=== PATIENT | female | born 1945 | race Caucasian/White ===

== ENCOUNTER 2019-05-13 10:24 | Day surgery (SDC) | payer MEDICARE, BC ==
[2019-05-13] VITALS (10 sets, daily range): BP systolic 102–157; BP diastolic 55–88
[~2019-05-13] VITALS: Ht 160 cm; Wt 55.9 kg
[2019-05-13] MEDS ORDERED: AMLO1TAB42 PO (11:08)
[2019-05-13] MEDS ORDERED: LORA10CA PO (11:09)
[2019-05-13] MEDS ORDERED: CHOL400T57 PO (11:09)
[2019-05-13] MEDS ORDERED: UBID200C18 PO (11:11)
[2019-05-13] MEDS ORDERED: IRON PO (11:12)
[2019-05-13] MEDS ORDERED: LANS15TA5 PO (11:13)
[2019-05-13] MEDS ORDERED: MELO-102 PO (11:13)
[2019-05-13] MEDS ORDERED: ASPI-1264 PO (11:14)
[2019-05-13] MEDS ORDERED: EVOL140S2 SQ (11:15)
[2019-05-13 11:16] LABS: BASOPHILS # (AUTO) 0.1 X10'3 (0-0.2); EOSINOPHILS # (AUTO) 0.2 X10'3 (0-0.9); HEMATOCRIT 45.9 % (35.0-45.0); HEMOGLOBIN 15.5 g/dl (12.0-16.0); LYMPHOCYTES # (AUTO) 1.2 X10'3 (1.1-4.8); MEAN CORPUSCULAR HEMOGLOBIN 30.7 PG (27.0-31.0); MEAN CORPUSCULAR HGB CONC 33.8 g/dL (33.0-36.5); MEAN CORPUSCULAR VOLUME 90.6 FL (78-98); MEAN PLATELET VOLUME 8.9 FL (7.4-10.4); MONOCYTES # (AUTO) 0.5 X10'3 (0-0.9); MONOCYTES % (AUTO) 8.1 % (2-12); NEUTROPHILS # (AUTO) 3.9 X10'3 (1.8-7.7); NEUTROPHILS % (AUTO) 66.9 % (42-75); PLATELET COUNT 311 X10'3 (140-440); RED BLOOD COUNT 5.07 X10'6 (4.20-5.60); RED CELL DISTRIBUTION WIDTH 12.9 % (11.5-14.5); WHITE BLOOD COUNT 5.8 X10'3 (4.5-11.0)
[2019-05-13 11:24] LABS: ALBUMIN 4.9 G/DL (3.4-5.0); ANION GAP 12 (8-16); BLOOD UREA NITROGEN 30 MG/DL (7-18); BUN/CREATININE RATIO 20.5 (6.6-38.0); CALCIUM 10.3 MG/DL (8.5-10.1); CHLORIDE 104 MMOL/L (99-107); CREATININE 1.46 MG/DL (0.40-0.90); GLUCOSE 96 MG/DL (70-104); MAGNESIUM 2.1 MG/DL (1.5-2.4); POTASSIUM 4.2 MMOL/L (3.5-5.1); SODIUM 142 MMOL/L (135-145); TOTAL CARBON DIOXIDE 26.2 MMOL/L (24-32); eGFR 35 ML/MIN
[2019-05-13] MEDS ORDERED: normal saline 1000ml 1,000 ML IV SCH (11:25)
[2019-05-13] MEDS ORDERED: clindamycin phosphate 150mg/ml inj. ONE (11:56)
[2019-05-13] MEDS ORDERED: fentaNYL/PF 50MCG/1 ML 2ML syringe ONE ×2 (11:56→12:57)
[2019-05-13] MEDS ORDERED: clindamycin 600mg/D5W 50ml 50 ML IV ONE (11:56)
[2019-05-13] MEDS ORDERED: vancomycin 1,000mg inj ONE (11:56)
[2019-05-13] MEDS ORDERED: midazolam 2 mg/2 ml injection ONE ×4 (11:56→13:15)
[2019-05-13] MEDS ORDERED: LIDOcaine 1% W/epiNEPHrine 1:100,000 20ml vial ONE (11:56)
[2019-05-13] MEDS ORDERED: iohexol 350MG/ML 100ml bottle IV ONE (11:57)
[2019-05-13] MEDS ORDERED: heparin 1,000unit/ml 10ml vial 10 ML ONE (11:57)
== END 2019-05-13 17:00 | disposition home or self-care (01) ==
LOC: SSTAY O 10:24
PROVIDERS: ATTEND Internal Medicine Cardiovascular Disease
DX: I49.5 Sick sinus syndrome (principal); I65.21 Occlusion and stenosis of right carotid artery; I70.291 Other atherosclerosis of native arteries of extremities, right leg; I48.0 Paroxysmal atrial fibrillation; I10 Essential (primary) hypertension; E78.00 Pure hypercholesterolemia, unspecified; Z88.0 Allergy status to penicillin; Z88.8 Allergy status to other drugs, medicaments and biological substances; Z90.710 Acquired absence of both cervix and uterus; Z98.890 Other specified postprocedural states; Z90.721 Acquired absence of ovaries, unilateral
CPT/HCPCS: 33208; 36225; 36415; 71045; 75710; 80048; 83735; 85025; 85610; 93005; 99152; 99153; C1769; C1785; C1894; C1898; J1644; J2250; J3010; J3370; J3490; Q9967; 36200; A4565; A4620; C1760

== ENCOUNTER 2019-05-14 10:10 | Emergency (ER) | payer MEDICARE, BC ==
[~2019-05-14] VITALS: Ht 162.6 cm; Wt 56.4 kg
[~2019-05-14 10:10] MED LIST: AMLO1TAB42 PO; ASPI-1264 PO; CHOL400T57 PO; EVOL140S2 SQ; IRON PO; LANS15TA5 PO; LORA10CA PO; MELO-102 PO; UBID200C18 PO
[2019-05-14 11:05] LABS: BASOPHILS % (AUTO) 0.4 % (0-1); EOSINOPHILS # (AUTO) 0.1 X10'3 (0-0.9); EOSINOPHILS % (AUTO) 1.7 % (0-6); HEMATOCRIT 42.1 % (35.0-45.0); HEMOGLOBIN 13.9 g/dl (12.0-16.0); LYMPHOCYTES % (AUTO) 12.3 % (21-51); MEAN CORPUSCULAR HGB CONC 33.1 g/dL (33.0-36.5); MEAN CORPUSCULAR VOLUME 90.6 FL (78-98); MEAN PLATELET VOLUME 8.8 FL (7.4-10.4); MONOCYTES # (AUTO) 0.7 X10'3 (0-0.9); NEUTROPHILS # (AUTO) 6.4 X10'3 (1.8-7.7); NEUTROPHILS % (AUTO) 77.6 % (42-75); PLATELET COUNT 262 X10'3 (140-440); RED BLOOD COUNT 4.65 X10'6 (4.20-5.60); RED CELL DISTRIBUTION WIDTH 12.5 % (11.5-14.5); WHITE BLOOD COUNT 8.3 X10'3 (4.5-11.0)
[2019-05-14 11:15] LABS: ALANINE AMINOTRANSFERASE 22 U/L (12-78); ALBUMIN 4.1 G/DL (3.4-5.0); ALBUMIN/GLOBULIN RATIO 1.2 (1.1-1.5); ALKALINE PHOSPHATASE 86 IU/L (46-116); ANION GAP 8 (8-16); ASPARTATE AMINO TRANSFERASE 24 U/L (10-37); BILIRUBIN,TOTAL 0.4 MG/DL (0.1-1.0); BLOOD UREA NITROGEN 26 MG/DL (7-18); BUN/CREATININE RATIO 19.3 (6.6-38.0); CALCIUM 9.5 MG/DL (8.5-10.1); CHLORIDE 105 MMOL/L (99-107); CREATININE 1.35 MG/DL (0.40-0.90); GLUCOSE 90 MG/DL (70-104); POTASSIUM 4.4 MMOL/L (3.5-5.1); SODIUM 140 MMOL/L (135-145); TOTAL PROTEIN 7.4 G/DL (6.4-8.2); eGFR 38 ML/MIN
[2019-05-14 11:17] LABS: MAGNESIUM 1.9 MG/DL (1.5-2.4)
--- NOTE | 2019-05-14 11:36 | NUR ---
VASCULAR STUDY DONE
[2019-05-14 13:20] VITALS: BP 166/66
--- NOTE | 2019-05-14 13:21 | NUR ---
RELIEVING RN FOR LUNCH, PT IS RESTING QUIETLY ON BED, FAMILY AT BEDSIDE, TROPONIN #2 DRAWN, WAITING FOR RESULTS, PT C/O "UNCOMFORTABLE" FEELING UPPER LEFT CHEST
== END 2019-05-14 14:47 | disposition home or self-care (01) ==
LOC: ER 10:11
DX: T82.897A Other specified complication of cardiac prosthetic devices, implants and grafts, initial encounter (principal); M25.511 Pain in right shoulder; M54.2 Cervicalgia; I25.10 Atherosclerotic heart disease of native coronary artery without angina pectoris; Z98.61 Coronary angioplasty status; Z95.0 Presence of cardiac pacemaker; Z88.0 Allergy status to penicillin; Z88.8 Allergy status to other drugs, medicaments and biological substances; Z79.82 Long term (current) use of aspirin; Z79.899 Other long term (current) drug therapy; Y69 Unspecified misadventure during surgical and medical care; Y92.89 Other specified places as the place of occurrence of the external cause
CPT/HCPCS: 36415; 71045; 80053; 83735; 84484; 85025; 93005; 93880; 99285

== ENCOUNTER 2020-10-26 09:47 | Day surgery (SDC) | payer MEDICARE, BC ==
[~2020-10-26] VITALS: Ht 161.3 cm; Wt 54.2 kg
[2020-10-26] VITALS (12 sets, daily range): BP systolic 135–172; BP diastolic 52–82
[2020-10-26] MEDS ORDERED: diphenhydrAMINE 25mg capsule PO PRN (10:20)
[2020-10-26] MEDS ORDERED: MULT-1085 PO (11:09)
[2020-10-26] MEDS ORDERED: APIX2.5T PO (11:09)
[2020-10-26] MEDS ORDERED: LANS30CA37 PO (11:09)
[2020-10-26] MEDS ORDERED: ALBU8HFA PO (11:09)
[2020-10-26 11:13] LABS: BASOPHILS # (AUTO) 0.1 X10'3 (0-0.2); BASOPHILS % (AUTO) 1.2 % (0-1); EOSINOPHILS # (AUTO) 0.6 X10'3 (0-0.9); EOSINOPHILS % (AUTO) 8.4 % (0-6); HEMATOCRIT 37.2 % (35.0-45.0); HEMOGLOBIN 12.5 g/dl (12.0-16.0); LYMPHOCYTES # (AUTO) 1.2 X10'3 (1.1-4.8); LYMPHOCYTES % (AUTO) 18.1 % (21-51); MEAN CORPUSCULAR HEMOGLOBIN 31.1 PG (27.0-31.0); MEAN CORPUSCULAR HGB CONC 33.6 g/dL (33.0-36.5); MEAN CORPUSCULAR VOLUME 92.6 FL (78-98); MEAN PLATELET VOLUME 8.7 FL (7.4-10.4); MONOCYTES # (AUTO) 0.6 X10'3 (0-0.9); MONOCYTES % (AUTO) 8.4 % (2-12); NEUTROPHILS # (AUTO) 4.2 X10'3 (1.8-7.7); NEUTROPHILS % (AUTO) 63.9 % (42-75); PLATELET COUNT 267 X10'3 (140-440); RED BLOOD COUNT 4.02 X10'6 (4.20-5.60); RED CELL DISTRIBUTION WIDTH 12.7 % (11.5-14.5); WHITE BLOOD COUNT 6.5 X10'3 (4.5-11.0)
[2020-10-26 11:15] LABS: ANION GAP 9 (8-16); BLOOD UREA NITROGEN 35 MG/DL (7-18); BUN/CREATININE RATIO 22.9 (6.6-38.0); CALCIUM 9.1 MG/DL (8.5-10.1); CHLORIDE 106 MMOL/L (99-107); CREATININE 1.53 MG/DL (0.40-0.90); GLUCOSE 89 MG/DL (70-104); POTASSIUM 4.5 MMOL/L (3.5-5.1); SODIUM 142 MMOL/L (135-145); eGFR 33 ML/MIN
[2020-10-26] MEDS: normal saline 1,000 ML IV SCH ×2 (11:26→14:00)
[2020-10-26] MEDS ORDERED: iohexol 350MG/ML 100ml bottle IV ONE ×2 (11:27→12:37)
[2020-10-26] MEDS ORDERED: iohexol 350 MG/ML 50ML vial IV ONE (11:27)
[2020-10-26] MEDS ORDERED: verapamil 2.5 mg/ml inj IV ONE (11:27)
[2020-10-26] MEDS ORDERED: fentaNYL/PF 50MCG/1 ML 2ML syringe ONE (11:27)
[2020-10-26] MEDS ORDERED: heparin 1,000unit/ml 10ml vial 10 ML ONE (11:27)
[2020-10-26] MEDS ORDERED: midazolam 1 mg/ML 2ml injection ONE ×2 (11:27→12:13)
[2020-10-26] MEDS ORDERED: LIDOcaine 1% (10mg/ml)w/preservative injection 20ml MDV ONE (11:27)
[2020-10-26] MEDS ORDERED: nitroGLYCERIN-Tridil 50MG/D5W 250 ML IV ONE (11:28)
[2020-10-26] MEDS ORDERED: clopidogrel 300mg tablet ONE (13:33)
[2020-10-26] MEDS ORDERED: ondansetron/PF 4mg/2ml inj IV PRN (14:05)
[2020-10-26] MEDS ORDERED: HYDROcodone/acetaminophen 5mg/325mg tablet PO PRN (14:05)
[2020-10-26] MEDS ORDERED: acetaminophen 325mg tablet PO PRN (14:05)
[2020-10-26] MEDS ORDERED: HYDROcodone/acetaminophen 10/325mg tab PO PRN (14:05)
[2020-10-26] MEDS ORDERED: proCHLORperazine 10 MG/2 ml inj IV PRN (14:05)
[2020-10-26] MEDS ORDERED: normal saline 1000ml 1,000 ML IV SCH (14:05)
--- NOTE | 2020-10-26 18:38 | NUR ---
Pt S/P femoral heart cath-has been on bedpan 5X in 1 hour and saturated agustina alfonso X4-pt states she has extreme urge to urinate and is very uncomfortable. Addendum: 10/26/20 at 1841 by Dinah Diaz RN Amended: Links added.
== END 2020-10-26 19:31 | disposition home or self-care (01) ==
LOC: SSTAY O 09:47
PROVIDERS: ATTEND Internal Medicine Cardiovascular Disease
DX: R94.39 Abnormal result of other cardiovascular function study (principal); R07.9 Chest pain, unspecified; I25.118 Atherosclerotic heart disease of native coronary artery with other forms of angina pectoris; I70.218 Atherosclerosis of native arteries of extremities with intermittent claudication, other extremity; E78.00 Pure hypercholesterolemia, unspecified; I13.0 Hypertensive heart and chronic kidney disease with heart failure and stage 1 through stage 4 chronic kidney disease, or unspecified chronic kidney disease; N18.30 Chronic kidney disease, stage 3 unspecified; I48.0 Paroxysmal atrial fibrillation; Z95.0 Presence of cardiac pacemaker; Z79.899 Other long term (current) drug therapy; Z98.890 Other specified postprocedural states; Z90.710 Acquired absence of both cervix and uterus; Z90.721 Acquired absence of ovaries, unilateral; Z98.62 Peripheral vascular angioplasty status; Z88.0 Allergy status to penicillin; Z88.8 Allergy status to other drugs, medicaments and biological substances; Z82.49 Family history of ischemic heart disease and other diseases of the circulatory system
CPT/HCPCS: 36415; 80048; 83735; 85025; 85610; 92978; 93005; 93458; 93571; 99152; 99153; C1725; C1751; C1753; C1760; C1769; C1874; C1894; C9600; J1644; J2001; J2250; J3010; J7030; Q0163; Q9967; A4620; A6258; J3490

== ENCOUNTER → 2020-12-21 | Day surgery (SDC) | payer MEDICARE, BC ==
[2020-12-21] VITALS (9 sets, daily range): BP systolic 128–179; BP diastolic 49–97
[~2020-12-21] VITALS: Ht 161.3 cm; Wt 55.8 kg
[~2020-12-21] MED LIST changes: +ALBU8HFA PO; +APIX2.5T PO; -ASPI-1264 PO; +IMODIUM; -IRON PO; -LANS15TA5 PO; +LANS30CA37 PO; +LIDOcaine 1% (10mg/ml)w/preservative injection 20ml MDV ONE; -MELO-102 PO; +MULT-1085 PO; -UBID200C18 PO; +acetylcysteine 200 MG/ml 4ml vial PO PRN; +diphenhydrAMINE 25mg capsule PO PRN; +fentaNYL/PF 50MCG/1 ML 2ML syringe ONE; +heparin 1,000unit/ml 10ml vial 10 ML ONE; +iohexol 350 MG/ML 50ML vial IV ONE; +iohexol 350MG/ML 100ml bottle IV ONE; +midazolam 1 mg/ML 2ml injection ONE; +sodium bicarbonate (8.4%) inj. 150 ML in dextrose 5%-water 1,000 ML IV ONE
[2020-12-21 10:23] LABS: BASOPHILS # (AUTO) 0.1 X10'3 (0-0.2); BASOPHILS % (AUTO) 1.2 % (0-1); EOSINOPHILS # (AUTO) 0.5 X10'3 (0-0.9); EOSINOPHILS % (AUTO) 8.7 % (0-6); HEMATOCRIT 38.2 % (35.0-45.0); HEMOGLOBIN 12.7 g/dl (12.0-16.0); LYMPHOCYTES % (AUTO) 17.9 % (21-51); MEAN CORPUSCULAR HGB CONC 33.3 g/dL (33.0-36.5); MEAN CORPUSCULAR VOLUME 93.2 FL (78-98); MEAN PLATELET VOLUME 8.8 FL (7.4-10.4); MONOCYTES # (AUTO) 0.5 X10'3 (0-0.9); MONOCYTES % (AUTO) 8.1 % (2-12); NEUTROPHILS # (AUTO) 3.7 X10'3 (1.8-7.7); NEUTROPHILS % (AUTO) 64.1 % (42-75); PLATELET COUNT 283 X10'3 (140-440); RED CELL DISTRIBUTION WIDTH 12.9 % (11.5-14.5); WHITE BLOOD COUNT 5.7 X10'3 (4.5-11.0)
[2020-12-21 10:26] LABS: ANION GAP 10 (8-16); BLOOD UREA NITROGEN 27 MG/DL (7-18); BUN/CREATININE RATIO 18.5 (6.6-38.0); CALCIUM 9.3 MG/DL (8.5-10.1); CHLORIDE 108 MMOL/L (99-107); CREATININE 1.46 MG/DL (0.40-0.90); GLUCOSE 91 MG/DL (70-104); POTASSIUM 4.2 MMOL/L (3.5-5.1); SODIUM 145 MMOL/L (135-145); TOTAL CARBON DIOXIDE 26.7 MMOL/L (24-32); eGFR 35 ML/MIN
== END | disposition home or self-care (01) ==
LOC: SSTAY O 09:03
PROVIDERS: ATTEND Internal Medicine Cardiovascular Disease
DX: R07.89 Other chest pain (principal); I25.10 Atherosclerotic heart disease of native coronary artery without angina pectoris; I12.9 Hypertensive chronic kidney disease with stage 1 through stage 4 chronic kidney disease, or unspecified chronic kidney disease; N18.30 Chronic kidney disease, stage 3 unspecified; E78.00 Pure hypercholesterolemia, unspecified; Z95.0 Presence of cardiac pacemaker; Z79.01 Long term (current) use of anticoagulants; Z79.899 Other long term (current) drug therapy; Z90.710 Acquired absence of both cervix and uterus; Z90.722 Acquired absence of ovaries, bilateral; Z98.890 Other specified postprocedural states; Z88.0 Allergy status to penicillin; Z88.8 Allergy status to other drugs, medicaments and biological substances; Z87.891 Personal history of nicotine dependence; Z82.49 Family history of ischemic heart disease and other diseases of the circulatory system
CPT/HCPCS: 36415; 80048; 83735; 85025; 85610; 93005; 93458; 93567; 93571; 99152; 99153; C1760; C1769; C1894; J1644; J2001; J2250; J3010; Q0163; Q9967; A6258

== ENCOUNTER 2021-01-04 08:40 | Emergency (ER) | payer MEDICARE, BC ==
[~2021-01-04] VITALS: Ht 160 cm; Wt 53.0 kg
[~2021-01-04 08:40] MED LIST changes: -LIDOcaine 1% (10mg/ml)w/preservative injection 20ml MDV ONE; -acetylcysteine 200 MG/ml 4ml vial PO PRN; -diphenhydrAMINE 25mg capsule PO PRN; -fentaNYL/PF 50MCG/1 ML 2ML syringe ONE; -heparin 1,000unit/ml 10ml vial 10 ML ONE; -iohexol 350 MG/ML 50ML vial IV ONE; -iohexol 350MG/ML 100ml bottle IV ONE; -midazolam 1 mg/ML 2ml injection ONE; -sodium bicarbonate (8.4%) inj. 150 ML in dextrose 5%-water 1,000 ML IV ONE
[2021-01-04 10:07] LABS: BASOPHILS # (AUTO) 0.1 X10'3 (0-0.2); BASOPHILS % (AUTO) 0.8 % (0-1); EOSINOPHILS # (AUTO) 0.4 X10'3 (0-0.9); EOSINOPHILS % (AUTO) 3.9 % (0-6); HEMATOCRIT 38.6 % (35.0-45.0); LYMPHOCYTES % (AUTO) 10.2 % (21-51); MEAN CORPUSCULAR HEMOGLOBIN 30.9 PG (27.0-31.0); MEAN CORPUSCULAR HGB CONC 33.5 g/dL (33.0-36.5); MEAN CORPUSCULAR VOLUME 92.1 FL (78-98); MEAN PLATELET VOLUME 8.6 FL (7.4-10.4); MONOCYTES # (AUTO) 0.7 X10'3 (0-0.9); MONOCYTES % (AUTO) 7.5 % (2-12); NEUTROPHILS # (AUTO) 7.7 X10'3 (1.8-7.7); NEUTROPHILS % (AUTO) 77.6 % (42-75); PLATELET COUNT 318 X10'3 (140-440); RED BLOOD COUNT 4.19 X10'6 (4.20-5.60); RED CELL DISTRIBUTION WIDTH 12.5 % (11.5-14.5); WHITE BLOOD COUNT 9.9 X10'3 (4.5-11.0)
[2021-01-04 10:11] VITALS: BP 166/65
[2021-01-04 10:24] LABS: ALANINE AMINOTRANSFERASE 22 U/L (12-78); ALBUMIN 3.8 G/DL (3.4-5.0); ALKALINE PHOSPHATASE 97 IU/L (46-116); ANION GAP 11 (8-16); ASPARTATE AMINO TRANSFERASE 18 U/L (10-37); BILIRUBIN,TOTAL 0.3 MG/DL (0.1-1.0); BLOOD UREA NITROGEN 28 MG/DL (7-18); BUN/CREATININE RATIO 18.9 (6.6-38.0); CHLORIDE 107 MMOL/L (99-107); CREATININE 1.48 MG/DL (0.40-0.90); GLUCOSE 94 MG/DL (70-104); MAGNESIUM 2.1 MG/DL (1.5-2.4); POTASSIUM 4.5 MMOL/L (3.5-5.1); SODIUM 144 MMOL/L (135-145); TOTAL CARBON DIOXIDE 25.6 MMOL/L (24-32); TOTAL PROTEIN 7.5 G/DL (6.4-8.2); eGFR 34 ML/MIN
[2021-01-04] MEDS ORDERED: acetaminophen 325mg tablet PO ONE (10:35)
[2021-01-04] MEDS ORDERED: cyclobenzaprine 10mg tablet PO ONE (10:35)
[2021-01-04] MEDS ORDERED: CYCL-1 PO (10:48)
[2021-01-04] MEDS ORDERED: ACET-1025 PO (10:48)
== END 2021-01-04 11:13 | disposition home or self-care (01) ==
LOC: ER 08:40
DX: M54.2 Cervicalgia (principal); M25.512 Pain in left shoulder; R06.02 Shortness of breath; I25.10 Atherosclerotic heart disease of native coronary artery without angina pectoris; Z95.0 Presence of cardiac pacemaker; Z98.890 Other specified postprocedural states; Z88.0 Allergy status to penicillin; Z88.1 Allergy status to other antibiotic agents; Z88.8 Allergy status to other drugs, medicaments and biological substances; Z79.899 Other long term (current) drug therapy
CPT/HCPCS: 36415; 71045; 80053; 83735; 84484; 85025; 93005; 99285

== ENCOUNTER 2021-03-05 07:36 | Inpatient (IN) | payer MEDICARE, BC ==
[2021-03-05] VITALS (20 sets, daily range): BP systolic 91–163; BP diastolic 33–63
[~2021-03-05] VITALS: Ht 162.6 cm; Wt 55.3 kg
[~2021-03-05 07:36] MED LIST changes: +CYCL-1 PO
[2021-03-05] MEDS ORDERED: sodium bicarbonate (8.4%) inj. 150 ML in dextrose 5%-water 1,000 ML IV ONE (08:00)
[2021-03-05] MEDS ORDERED: sodium bicarbonate (8.4%) inj. 150 MEQ in dextrose 5%-water 1,000 ML IV SCH (08:00)
[2021-03-05] MEDS ORDERED: diphenhydrAMINE 25mg capsule PO PRN (08:00)
[2021-03-05] MEDS ORDERED: CLOP75TA15 PO (09:01)
[2021-03-05 09:05] LABS: BASOPHILS # (AUTO) 0.1 X10'3 (0-0.2); BASOPHILS % (AUTO) 0.9 % (0-1); EOSINOPHILS # (AUTO) 0.3 X10'3 (0-0.9); EOSINOPHILS % (AUTO) 5.6 % (0-6); HEMATOCRIT 33.7 % (35.0-45.0); HEMOGLOBIN 11.8 g/dl (12.0-16.0); LYMPHOCYTES # (AUTO) 0.8 X10'3 (1.1-4.8); LYMPHOCYTES % (AUTO) 14.2 % (21-51); MEAN CORPUSCULAR HEMOGLOBIN 31.3 PG (27.0-31.0); MEAN CORPUSCULAR HGB CONC 34.9 g/dL (33.0-36.5); MEAN CORPUSCULAR VOLUME 89.8 FL (78-98); MEAN PLATELET VOLUME 8.7 FL (7.4-10.4); MONOCYTES # (AUTO) 0.5 X10'3 (0-0.9); MONOCYTES % (AUTO) 8.9 % (2-12); NEUTROPHILS # (AUTO) 4.2 X10'3 (1.8-7.7); NEUTROPHILS % (AUTO) 70.4 % (42-75); PLATELET COUNT 281 X10'3 (140-440); RED BLOOD COUNT 3.76 X10'6 (4.20-5.60); RED CELL DISTRIBUTION WIDTH 12.6 % (11.5-14.5); WHITE BLOOD COUNT 5.9 X10'3 (4.5-11.0)
[2021-03-05] MEDS ORDERED: CYCL-1 PO (09:05)
[2021-03-05] MEDS ORDERED: Magnesium Gluconate PO (09:09)
[2021-03-05] MEDS ORDERED: ACET-1008 PO (09:09)
[2021-03-05] MEDS ORDERED: midazolam 1 mg/ML 2ml injection ONE ×4 (09:15→13:49)
[2021-03-05] MEDS ORDERED: fentaNYL/PF 50MCG/1 ML 2ML syringe ONE ×2 (09:15→13:49)
[2021-03-05] MEDS ORDERED: heparin 1,000unit/ml 10ml vial 10 ML ONE ×2 (09:16→13:43)
[2021-03-05] MEDS ORDERED: LIDOcaine 1% (10mg/ml)w/preservative injection 20ml MDV ONE ×2 (09:16→13:43)
[2021-03-05] MEDS ORDERED: iohexol 350MG/ML 100ml bottle IV ONE ×3 (09:16→13:43)
[2021-03-05 09:18] LABS: ALANINE AMINOTRANSFERASE 24 U/L (12-78); ALBUMIN 3.7 G/DL (3.4-5.0); ALBUMIN/GLOBULIN RATIO 1.1 (1.1-1.5); ALKALINE PHOSPHATASE 84 IU/L (46-116); ANION GAP 9 (8-16); ASPARTATE AMINO TRANSFERASE 18 U/L (10-37); BILIRUBIN,TOTAL 0.4 MG/DL (0.1-1.0); BLOOD UREA NITROGEN 37 MG/DL (7-18); BUN/CREATININE RATIO 20.3 (6.6-38.0); CHLORIDE 104 MMOL/L (99-107); CREATININE 1.82 MG/DL (0.40-0.90); GLUCOSE 86 MG/DL (70-104); MAGNESIUM 2.2 MG/DL (1.5-2.4); POTASSIUM 4.7 MMOL/L (3.5-5.1); SODIUM 139 MMOL/L (135-145); TOTAL CARBON DIOXIDE 26.2 MMOL/L (24-32); TOTAL PROTEIN 7.2 G/DL (6.4-8.2); eGFR 27 ML/MIN
[2021-03-05] MEDS ORDERED: HYDROcodone/acetaminophen 5mg/325mg tablet PO PRN (11:40)
[2021-03-05] MEDS ORDERED: ondansetron/PF 4mg/2ml inj IV PRN (11:40)
[2021-03-05] MEDS ORDERED: HYDROcodone/acetaminophen 10/325mg tab PO PRN (11:40)
[2021-03-05] MEDS ORDERED: acetaminophen 325mg tablet PO PRN ×2 (11:40→15:45)
[2021-03-05] MEDS ORDERED: proCHLORperazine 10 MG/2 ml inj IV PRN (11:40)
[2021-03-05] MEDS ORDERED: ketorolac trometh. 30mg/ml inj. IV STA (12:31)
--- NOTE | 2021-03-05 13:02 | NUR ---
GAVE REPORT TO CRAIG PERALTA ON TELE. WILL TRANSFER SOON.
--- NOTE | 2021-03-05 13:40 | NUR ---
MADE CRAIG PERALTA ON TELE THAT PATIENT WILL BE TRANSFERRED TO HER AFTER PROCEDURE.
--- NOTE | 2021-03-05 14:15 | NUR ---
DON, PATIENT'S CALLED FOR UPDATE. MADE HIM AWARE THAT SHE'S CURRENTLY IN PROCEDURE FOR SECOND TIME AND HE MAY CALL TELEMETRY'S NUMBER FOR UPDATE ON PROCEDURE AND GAVE HIM THE NUMBER AND RECEIVING NURSES NAME.
[2021-03-05] MEDS ORDERED: normal saline 1000ml 1,000 ML IV SCH (15:45)
[2021-03-05] MEDS ORDERED: albuterol 2.5 MG/3 ML nebule NEB PRN (15:45)
--- NOTE | 2021-03-05 16:00 | NUR ---
PT rt groin with perclose coved with tegaderm and 2x2, no bleeding, hematoma, redness, noted. all pulses palpable and pt in no distress
--- NOTE | 2021-03-05 16:11 | NUR ---
Patient in room PCU 3012. I have received report from Ruby PERALTAgovernment relations analyst and had the opportunity to ask questions and assume patient care.
--- NOTE | 2021-03-05 18:15 | NUR ---
Patient in room PCU 3012. I have received report from Mima PERALTA and had the opportunity to ask questions and assume patient care.
--- NOTE | 2021-03-05 18:55 | NUR ---
Problems reprioritized. Patient report given, questions answered & plan of care reviewed with Sarah PERALTA[].
[2021-03-05] MEDS: normal saline 1000ml 1,000 ML IV SCH (19:57)
[2021-03-05] MEDS: apixaban 2.5mg tablet PO SCH (20:34)
[2021-03-05] MEDS ORDERED: cyclobenzaprine 10mg tablet PO SCH (21:00)
[2021-03-06 02:00] VITALS: BP 115/45
[2021-03-06] MEDS: normal saline 1000ml 1,000 ML IV SCH (04:20)
--- NOTE | 2021-03-06 06:06 | NUR ---
Problems reprioritized. Patient report given Mima PERALTA, questions answered & plan of care reviewed with.
--- NOTE | 2021-03-06 06:56 | NUR ---
Patient in room PCU 3012. I have received report from Lamine PERALTA and had the opportunity to ask questions and assume patient care.
[2021-03-06] MEDS: apixaban 2.5mg tablet PO SCH (07:59)
[2021-03-06] MEDS ORDERED: magnesium oxide 400mg tablet PO SCH (08:00)
[2021-03-06] MEDS ORDERED: cholecalciferol (vitamin D3) 400 unit (10mcg) tablet PO SCH (08:00)
[2021-03-06] MEDS ORDERED: pantoprazole 40mg Tablet.DR PO SCH (08:00)
[2021-03-06] MEDS ORDERED: amLODIPine 5mg tablet PO SCH (08:00)
[2021-03-06] MEDS ORDERED: clopidogrel 75mg tablet PO SCH (08:00)
[2021-03-06] MEDS ORDERED: OLMESARTAN MED PO SCH (08:00)
[2021-03-06] MEDS ORDERED: loratadine 10mg tablet PO SCH (08:00)
[2021-03-06] MEDS ORDERED: AMLODIPINE BES PO SCH (08:00)
[2021-03-06] MEDS ORDERED: losartan 50mg tablet PO SCH (08:00)
[2021-03-06 08:01] VITALS: BP_SYST 125
--- NOTE | 2021-03-06 08:29 | NUR ---
Dr Arvizu paged regarding [phone] MESSAGE: RE: Siena Farrar [id number], Patient takes Carbadopa/lebadopa 25/100mg 4 times a day for her Parkinson. Can we add please
--- NOTE | 2021-03-06 09:48 | NUR ---
Pt has orders for discharge, no distress noted, pulses palpable, no edema, hematoma, or redness to rt groin. no bleeding noted to rt groin and covered with tegaderm and 2x2. IV removed with canula intact
--- NOTE | 2021-03-06 11:06 | NUR ---
Pt left via wheelchair, no distress noted. Pt transported home by [id number]. Iv removed with canula intact
[2021-04-01] MEDS ORDERED: EVOLOCUMAB SQ SCH (10:00)
== END 2021-03-06 10:59 | disposition home or self-care (01) | DRG 254 ==
LOC: SSTAY O 07:36 → PCU 3S 15:10
PROVIDERS: ADMIT Internal Medicine Cardiovascular Disease; ATTEND Internal Medicine Cardiovascular Disease
PROC: 047A34Z Dilation of Left Renal Artery with Drug-eluting Intraluminal Device, Percutaneous Approach (ICD-10-PCS; principal; 2021-03-05)
PROC: 04FY3ZZ Fragmentation of Lower Artery, Percutaneous Approach (ICD-10-PCS; 2021-03-05)
PROC: 04HA3DZ Insertion of Intraluminal Device into Left Renal Artery, Percutaneous Approach (ICD-10-PCS; 2021-03-05)
PROC: B4181ZZ Fluoroscopy of Bilateral Renal Arteries using Low Osmolar Contrast (ICD-10-PCS; 2021-03-05)
PROC: 6A750Z7 Ultrasound Therapy of Other Vessels, Single (ICD-10-PCS; 2021-03-05)
PROC: 6A750Z7 Ultrasound Therapy of Other Vessels, Single (ICD-10-PCS; 2021-03-05)
PROC: B4171ZZ Fluoroscopy of Left Renal Artery using Low Osmolar Contrast (ICD-10-PCS; 2021-03-05)
DX: I15.0 Renovascular hypertension (principal); E78.00 Pure hypercholesterolemia, unspecified; I73.9 Peripheral vascular disease, unspecified; I25.10 Atherosclerotic heart disease of native coronary artery without angina pectoris; I48.0 Paroxysmal atrial fibrillation
CPT/HCPCS: 37236; 37237; 92978; C9764; 36415; 80053; 83735; 85025; 85610; 87081; 93005; 99152; 99153; A4620; A6258; C1725; C1751; C1753; C1760; C1769; C1874; C1887; C1894; G0378; J1644; J1885; J2250; J3010; J3490; J7030; J7070; Q9967

== ENCOUNTER 2021-03-13 09:51 | Inpatient (IN) | payer MEDICARE, BC ==
[~2021-03-13] VITALS: Ht 160 cm; Wt 53.2 kg
[~2021-03-13 09:51] MED LIST changes: +ACET-1008 PO; +CLOP75TA15 PO; -MULT-1085 PO; +Magnesium Gluconate PO
[2021-03-13 10:33] LABS: BASOPHILS # (AUTO) 0.1 X10'3 (0-0.2); EOSINOPHILS # (AUTO) 0.3 X10'3 (0-0.9); EOSINOPHILS % (AUTO) 3.3 % (0-6); HEMATOCRIT 27.5 % (35.0-45.0); HEMOGLOBIN 9.3 g/dl (12.0-16.0); LYMPHOCYTES # (AUTO) 0.9 X10'3 (1.1-4.8); LYMPHOCYTES % (AUTO) 11.9 % (21-51); MEAN CORPUSCULAR HEMOGLOBIN 31.1 PG (27.0-31.0); MEAN CORPUSCULAR HGB CONC 33.8 g/dL (33.0-36.5); MEAN CORPUSCULAR VOLUME 92.1 FL (78-98); MEAN PLATELET VOLUME 8.2 FL (7.4-10.4); MONOCYTES # (AUTO) 0.8 X10'3 (0-0.9); MONOCYTES % (AUTO) 10.3 % (2-12); NEUTROPHILS # (AUTO) 5.6 X10'3 (1.8-7.7); NEUTROPHILS % (AUTO) 73.5 % (42-75); PLATELET COUNT 447 X10'3 (140-440); RED BLOOD COUNT 2.98 X10'6 (4.20-5.60); RED CELL DISTRIBUTION WIDTH 13.4 % (11.5-14.5); WHITE BLOOD COUNT 7.7 X10'3 (4.5-11.0)
[2021-03-13] MEDS ORDERED: diltiazem 5mg/ml 5ml inj. IV ONE ×3 (10:55→12:45)
[2021-03-13 11:04] LABS: ALANINE AMINOTRANSFERASE 21 U/L (12-78); ALBUMIN 3.6 G/DL (3.4-5.0); ALKALINE PHOSPHATASE 84 IU/L (46-116); ANION GAP 10 (8-16); ASPARTATE AMINO TRANSFERASE 22 U/L (10-37); BILIRUBIN,TOTAL 0.6 MG/DL (0.1-1.0); BLOOD UREA NITROGEN 28 MG/DL (7-18); BUN/CREATININE RATIO 16.5 (6.6-38.0); CALCIUM 9.5 MG/DL (8.5-10.1); CHLORIDE 106 MMOL/L (99-107); GLUCOSE 138 MG/DL (70-104); POTASSIUM 4.2 MMOL/L (3.5-5.1); SODIUM 141 MMOL/L (135-145); TOTAL CARBON DIOXIDE 24.8 MMOL/L (24-32); TOTAL PROTEIN 7.3 G/DL (6.4-8.2); eGFR 29 ML/MIN
--- NOTE | 2021-03-13 11:20 | NUR ---
prosthetic technician at bedside.
--- NOTE | 2021-03-13 11:20 | NUR ---
Dr. Villasenor made awre that HR still high inspite of cardizem 5mgiv.
[2021-03-13 11:23] LABS: CLARITY,URINE CLEAR (Clear); COLOR,URINE YELLOW (Yellow); GLUCOSE, URINE NEGATIVE (Neg); KETONES,URINE NEGATIVE (Neg); LEUKOCYTE ESTERASE ,URINE TRACE (Neg); NITRITES, URINE NEGATIVE (Neg); OCCULT BLOOD,URINE TRACE-INTACT (Neg); PH,URINE 5.5 (4.8-8.0); PROTEIN,URINE NEGATIVE (Neg); UROBILINOGEN,URINE 0.2 E.U/dL (0.2-1.0)
[2021-03-13 11:33] LABS: UA COLLECTION TYPE CLN CATCH MIDSTREAM
[2021-03-13 11:34] LABS: BACTERIA,URINE NONE SEEN /HPF (Neg); MUCUS STRANDS FEW /LPF (Neg); RBC,URINE 0-2 /HPF (0-2); SQUAMOUS EPITHELIAL CELL,UR FEW /LPF (FEW); WBC,URINE 0-4 /HPF (0-4)
[2021-03-13] MEDS ORDERED: normal saline 500ml IV soln 500 ML IV STA (11:53)
--- NOTE | 2021-03-13 12:36 | NUR ---
PTS HR RANGING FROM 100-140. PT IN ROOM IN NO DISTRESS. DR OCAMPO NOTIFIED, NO NEW ORDERS. PT AWAITING HOSPITALIST
--- NOTE | 2021-03-13 13:11 | NUR ---
DR AVILA AT BEDSIDE, REPORTS TO GIVE DILTIAZEM NOW
[2021-03-13] MEDS ORDERED: morphine 2 MG/ML inj. syringe IV PRN (13:25)
[2021-03-13] MEDS ORDERED: potassium Cl 20 mEq SR tablet PO PRN ×2 (13:25)
[2021-03-13] MEDS ORDERED: HYDROcodone/acetaminophen 5mg/325mg tablet PO PRN (13:25)
[2021-03-13] MEDS ORDERED: potassium CL 10mEq/100ml bag 100 ML IV PRN (13:25)
[2021-03-13] MEDS ORDERED: magnesium Cl slow-release 64mg tablet PO PRN (13:25)
[2021-03-13] MEDS ORDERED: magnesium 4gm in 100ml NS 100 ML IV PRN (13:25)
[2021-03-13] MEDS ORDERED: magnesium 2GM in 50ml NS 50 ML IV PRN (13:25)
[2021-03-13] MEDS ORDERED: ondansetron/PF 4mg/2ml inj IV PRN (13:25)
[2021-03-13] MEDS ORDERED: acetaminophen 325mg tablet PO PRN ×3 (13:25→15:40)
[2021-03-13] MEDS: diltiazem-NS 100mg/100ml 100 ML IV SCH ×2 (13:53→15:05)
[2021-03-13] MEDS: normal saline 1000ml 1,000 ML IV SCH ×2 (13:54→23:25)
--- NOTE | 2021-03-13 14:51 | NUR ---
pg sent to Dr Peralta re: blood
--- NOTE | 2021-03-13 14:54 | NUR ---
Clarified that Dr. Peralta wants pt to receive unit of blood, she does
--- NOTE | 2021-03-13 14:55 | NUR ---
spoke to Dr. Peralta to obtain a rate increase for MD hemal ordered 7.5ml/hour rate.
--- NOTE | 2021-03-13 15:04 | NUR ---
STARETD ON CARDIZEM DRIP 7.5MG/HOUR.
[2021-03-13 15:31] VITALS: BP 180/70
--- NOTE | 2021-03-13 15:31 | NUR ---
started patient on BT 1 unit.No noted reaction at this time.
[2021-03-13 15:46] VITALS: BP 173/73
--- NOTE | 2021-03-13 15:51 | NUR ---
no noted reaction from BT.
[2021-03-13 15:54] LABS: % IRON SATURATION 19 % (11-46); IRON 52 UG/DL (49-151); TOTAL IRON BINDING CAPACITY 272 UG/DL (259-388)
[2021-03-13 16:31] VITALS: BP 181/71
--- NOTE | 2021-03-13 16:42 | NUR ---
Paged regarding patient's high blood pressure and that she didn't take her morning meds today- losartan 100mg, norvasc 10mg po.
--- NOTE | 2021-03-13 16:44 | NUR ---
Dr. Craft said ok to give a dose of losartan 100mg and norvac 10mg po.
[2021-03-13] MEDS ORDERED: amLODIPine 5mg tablet PO STA (16:48)
[2021-03-13] MEDS ORDERED: losartan 50mg tablet PO STA (16:48)
[2021-03-13 17:31] VITALS: BP 168/62
--- NOTE | 2021-03-13 17:39 | NUR ---
completed BT#1.No noted adverse reaction.
[2021-03-13] MEDS: K and/or MAG REPLACEMENT MC SCH (20:00)
[2021-03-13] MEDS ORDERED: temazepam 15mg capsule PO PRN (21:00)
[2021-03-13] MEDS ORDERED: clopidogrel 75mg tablet PO ONE (21:35)
--- NOTE | 2021-03-13 21:46 | NUR ---
Follow up troponin drawn and had increased to 93 from first troponin 64. notified and gave new order for stat adminstration of 75 MG plavix per pt med rec. Third troponin drawn and sent to lab.
[2021-03-13 23:00] VITALS: BP 154/62
[2021-03-14 02:00] VITALS: BP 145/53
[2021-03-14] MEDS: normal saline 1000ml 1,000 ML IV SCH (02:21)
[2021-03-14 06:00] VITALS: BP 153/63
[2021-03-14 07:10] LABS: BASOPHILS # (AUTO) 0.1 X10'3 (0-0.2); EOSINOPHILS # (AUTO) 0.3 X10'3 (0-0.9); HEMOGLOBIN 10.9 g/dl (12.0-16.0); LYMPHOCYTES # (AUTO) 0.7 X10'3 (1.1-4.8); LYMPHOCYTES % (AUTO) 13.2 % (21-51); MEAN CORPUSCULAR HGB CONC 34.1 g/dL (33.0-36.5); MEAN PLATELET VOLUME 7.9 FL (7.4-10.4); MONOCYTES # (AUTO) 0.6 X10'3 (0-0.9); MONOCYTES % (AUTO) 11.2 % (2-12); NEUTROPHILS # (AUTO) 3.8 X10'3 (1.8-7.7); NEUTROPHILS % (AUTO) 68.6 % (42-75); PLATELET COUNT 430 X10'3 (140-440); RED BLOOD COUNT 3.63 X10'6 (4.20-5.60); RED CELL DISTRIBUTION WIDTH 16.6 % (11.5-14.5); WHITE BLOOD COUNT 5.5 X10'3 (4.5-11.0)
--- NOTE | 2021-03-14 07:30 | NUR ---
Problems reprioritized. Patient report given, questions answered & plan of care reviewed with Mumtaz PERALTA.
[2021-03-14 07:52] LABS: ALANINE AMINOTRANSFERASE 20 U/L (12-78); ALBUMIN 3.5 G/DL (3.4-5.0); ALKALINE PHOSPHATASE 77 IU/L (46-116); ANION GAP 12 (8-16); ASPARTATE AMINO TRANSFERASE 22 U/L (10-37); BLOOD UREA NITROGEN 18 MG/DL (7-18); BUN/CREATININE RATIO 14.6 (6.6-38.0); CALCIUM 9.2 MG/DL (8.5-10.1); CHLORIDE 108 MMOL/L (99-107); CREATININE 1.23 MG/DL (0.40-0.90); GLUCOSE 88 MG/DL (70-104); POTASSIUM 4.1 MMOL/L (3.5-5.1); SODIUM 143 MMOL/L (135-145); TOTAL CARBON DIOXIDE 23.4 MMOL/L (24-32); eGFR 42 ML/MIN
[2021-03-14] MEDS: K and/or MAG REPLACEMENT MC SCH (08:00)
[2021-03-14] MEDS ORDERED: amLODIPine 5mg tablet PO SCH (08:00)
[2021-03-14] MEDS ORDERED: clopidogrel 75mg tablet PO SCH (08:00)
[2021-03-14] MEDS ORDERED: losartan 50mg tablet PO SCH (08:00)
[2021-03-14] MEDS ORDERED: CARSR60C PO (10:22)
[2021-03-14 10:53] LABS: BASOPHILS # (AUTO) 0.1 X10'3 (0-0.2); BASOPHILS % (AUTO) 1.2 % (0-1); EOSINOPHILS # (AUTO) 0.3 X10'3 (0-0.9); EOSINOPHILS % (AUTO) 4.5 % (0-6); HEMATOCRIT 34.1 % (35.0-45.0); HEMOGLOBIN 11.5 g/dl (12.0-16.0); LYMPHOCYTES # (AUTO) 0.9 X10'3 (1.1-4.8); LYMPHOCYTES % (AUTO) 13.8 % (21-51); MEAN CORPUSCULAR HEMOGLOBIN 29.7 PG (27.0-31.0); MEAN CORPUSCULAR HGB CONC 33.9 g/dL (33.0-36.5); MEAN CORPUSCULAR VOLUME 87.6 FL (78-98); MEAN PLATELET VOLUME 7.9 FL (7.4-10.4); MONOCYTES # (AUTO) 0.7 X10'3 (0-0.9); MONOCYTES % (AUTO) 10.5 % (2-12); NEUTROPHILS # (AUTO) 4.6 X10'3 (1.8-7.7); PLATELET COUNT 448 X10'3 (140-440); RED BLOOD COUNT 3.89 X10'6 (4.20-5.60); RED CELL DISTRIBUTION WIDTH 16.4 % (11.5-14.5); WHITE BLOOD COUNT 6.6 X10'3 (4.5-11.0)
[2021-03-14 11:00] VITALS: BP 163/59
[2021-03-14 11:10] LABS: D-DIMER 5.61 MG/L FEU (0-0.50)
[2021-03-14] MEDS ORDERED: diltiazem SR 60mg capsule (twice daily) PO ONE (14:05)
[2021-03-14] MEDS ORDERED: diltiazem SR 60mg capsule (twice daily) PO SCH ×2 (20:00)
[2021-03-17] MEDS ORDERED: EVOLOCUMAB SQ SCH (08:00)
== END 2021-03-14 15:00 | disposition home or self-care (01) | DRG 309 ==
LOC: ER 09:52 → ED HOLD 13:27 → EDBEDREQ 19:36 → PCU 3S 22:15
PROVIDERS: ADMIT Internal Medicine; ATTEND Internal Medicine
PROC: 30233N1 Transfusion of Nonautologous Red Blood Cells into Peripheral Vein, Percutaneous Approach (ICD-10-PCS; principal; 2021-03-13)
PROC: CB121ZZ Planar Nuclear Medicine Imaging of Lungs and Bronchi using Technetium 99m (Tc-99m) (ICD-10-PCS; 2021-03-14)
DX: I48.0 Paroxysmal atrial fibrillation (principal); I24.8 Other forms of acute ischemic heart disease; D63.8 Anemia in other chronic diseases classified elsewhere; E78.00 Pure hypercholesterolemia, unspecified; E78.5 Hyperlipidemia, unspecified; I15.0 Renovascular hypertension; I25.10 Atherosclerotic heart disease of native coronary artery without angina pectoris; I73.9 Peripheral vascular disease, unspecified; N18.30 Chronic kidney disease, stage 3 unspecified; Z87.891 Personal history of nicotine dependence; Z98.61 Coronary angioplasty status; Z88.0 Allergy status to penicillin; Z88.1 Allergy status to other antibiotic agents; Z88.8 Allergy status to other drugs, medicaments and biological substances; Z95.0 Presence of cardiac pacemaker
CPT/HCPCS: 36415; 36430; 71045; 78580; 80053; 81001; 83540; 83550; 83605; 83880; 84484; 85025; 85379; 86885; 86900; 86901; 86920; 87040; 87081; 87088; 93005; 93306; 93976; 96374; 96375; 99285; A9540; G0378; J3490; J7030; J7040; P9016

== ENCOUNTER 2021-10-25 08:58 | Outpatient (CLI) | payer MEDICARE, BC ==
[~2021-10-25 08:58] MED LIST changes: -ACET-1008 PO; -ALBU8HFA PO; +ALBU90AE PO; -APIX2.5T PO; -CHOL400T57 PO; +CHOL50004 PO; -CLOP75TA15 PO; -CYCL-1 PO; +DOFE125C4 PO; +EVOL140P3 SQ; -EVOL140S2 SQ; +HYDR-3964 PO; -IMODIUM; +LOPE2TAB25 PO; +LORA-512 PO; -LORA10CA PO; +MULT-1141 PO; -Magnesium Gluconate PO; +RIVA15TA PO; +magnesium PO
[2021-10-25 09:35] LABS: ALBUMIN 3.7 G/DL (3.4-5.0); ANION GAP 8 (8-16); BLOOD UREA NITROGEN 26 MG/DL (7-18); BUN/CREATININE RATIO 19.8 (6.6-38.0); CALCIUM 9.3 MG/DL (8.5-10.1); CHLORIDE 106 MMOL/L (99-107); CREATININE 1.31 MG/DL (0.40-0.90); GLUCOSE 95 MG/DL (70-104); POTASSIUM 4.3 MMOL/L (3.5-5.1); SODIUM 142 MMOL/L (135-145); eGFR 39 ML/MIN
== END 2021-10-25 23:59 | disposition home or self-care (01) ==
LOC: LAB 08:58
PROVIDERS: ATTEND Thoracic Surgery (Cardiothoracic Vascular Surgery)
DX: Z13.9 Encounter for screening, unspecified (principal)
CPT/HCPCS: 36415; 80048

== ENCOUNTER 2021-10-28 09:13 | Outpatient (CLI) | payer MEDICARE, BC ==
[2021-10-28] MEDS ORDERED: iohexol 350MG/ML 100ml bottle IV ONE (09:31)
== END 2021-10-28 23:59 | disposition home or self-care (01) ==
LOC: RAD 09:13
PROVIDERS: ATTEND Thoracic Surgery (Cardiothoracic Vascular Surgery)
DX: I65.23 Occlusion and stenosis of bilateral carotid arteries (principal)
CPT/HCPCS: 70498; J3490; Q9967

== ENCOUNTER 2022-11-21 11:57 | Outpatient (CLI) | payer MEDICARE, BC | END 2022-11-21 23:59 | disposition home or self-care (01) | LOC: VAS 11:57 | PROVIDERS: ATTEND Internal Medicine Cardiovascular Disease | DX: I70.213 Atherosclerosis of native arteries of extremities with intermittent claudication, bilateral legs (principal) | CPT/HCPCS: 93922; 93925 ==

== ENCOUNTER 2022-11-30 15:04 | Emergency (ER) | payer MEDICARE, BC ==
[~2022-11-30] VITALS: Ht 161.9 cm; Wt 52.7 kg
[2022-11-30 16:00] VITALS: BP 181/75; PULSE 83; RESP 18; TEMP 98.1; O2SAT 97
[2022-11-30] MEDS ORDERED: CYCL-1 PO (19:01)
== END 2022-11-30 19:26 | disposition home or self-care (01) ==
LOC: ER 15:05
DX: S39.012A Strain of muscle, fascia and tendon of lower back, initial encounter (principal); I11.0 Hypertensive heart disease with heart failure; E78.00 Pure hypercholesterolemia, unspecified; X58.XXXA Exposure to other specified factors, initial encounter; Y93.89 Activity, other specified; Y92.89 Other specified places as the place of occurrence of the external cause; Y99.8 Other external cause status
CPT/HCPCS: 99283